=== PATIENT | female | born 1950 | race Caucasian/White ===

== ENCOUNTER 2017-08-28 11:30 | Emergency (ER) | payer MEDICARE ==
[2017-08-28 13:45] LABS: #Basophils 0.1 thou/uL (0.0-0.2); #Eosinphils 0.1 thou/uL (0.0-0.7); #Lymphocytes 2.4 thou/uL (1.20-3.40); #Monocytes 0.7 thou/uL (0.11-0.59); #Neutrophils 6.5 thou/uL (1.40-6.50); %Basophils 0.6 % (0.0-1.0); %Eosinophils 1.2 % (0.0-10.0); %Lymphocytes 24.8 % (21.0-51.0); %Monocytes 7.3 % (0.0-10.0); Hematocrit 40.4 % (36.0-47.0); Mean Platelet Volume 6.4 fL (7.4-10.4); Red Blood Cell (RBC) Count 4.14 mill/uL (4.20-5.40); White Blood Cell (WBC) Count 9.7 thou/uL (4.8-10.8)
[2017-08-28] MEDS ORDERED: ISOVUE-370 76%-LOCM 1 ML ONE (13:48)
[2017-08-28] MEDS ORDERED: Dexamethasone 4 mg/ml Vial ONE (13:51)
[2017-08-28] MEDS ORDERED: Morphine 4 MG/ML VIAL ONE (13:51)
[2017-08-28 14:08] LABS: ALT (SGPT) 22 U/L (8-55); AST (SGOT) 18 U/L (5-34); Alkaline Phosphatase 79 U/L (40-150); Anion Gap 9 mmol/L (10-20); BUN (Urea Nitrogen) 14 mg/dL (9.8-20.1); Bilirubin, Total 0.5 mg/dL (0.2-1.2); Calc. Creatinine Clearance 0 mL/min (70-130); Calcium 9.3 mg/dL (7.8-10.44); Carbon Dioxide 30 mmol/L (23-31); Chloride 104 mmol/L (98-107); Estimated GFR-MDRD 65; Globulin 2.3 g/dL (2.4-3.5); Lipase 4 U/L (8-78); Magnesium 2.2 mg/dL (1.6-2.6)
[2017-08-28 14:10] LABS: Troponin I Less than 0.010 ng/mL (< 0.028)
[2017-08-28 14:19] LABS: Bilirubin Negative (Negative); Blood, Urine Negative (Negative); Glucose, Urine (Dipstick) 100 mg/dL (Negative); Ketone, Urine Negative (Negative); Nitrite Negative (Negative); Protein, Urine (Dipstick) Negative (Neg-Trace); Urobilinogen 0.2 mg/dL (0.2-1.0)
--- NOTE | 2017-08-28 14:20 | RAD ---
AP VIEW CHEST: Date: 08/28/17 HISTORY: Chest pain. FINDINGS: The lungs are well aerated. No evidence of active intrathoracic disease seen. No evidence of effusion s, pneumonia, or pneumothorax seen. IMPRESSION: Unremarkable AP view of chest. POS: [facility]
--- NOTE | 2017-08-28 15:20 | CT ---
CONTRAST ENHANCED CT OF SOFT TISSUES NECK OBTAINED: Date: 08/28/17 HISTORY: Sore throat since last night, worsening, radiating down to mid sternal region. FINDINGS: Contrast enhanced CT of the soft tissue neck is obtained. The frontal, ethmoid, maxillary, and spheno id sinuses are well aerated. No evidence of lymphadenopathy or masses are seen. The retropharyngeal r egion is unremarkable. No evidence of neck abscess is seen. There is an approximately 6.0 mm area of hypodensity in the left thyroid lobe, as well as some hetero geneity in the right thyroid inferiorly. This may represent thyroid lesions, too small to characteriz e on CT. Further workup using elective sonography may be of use. IMPRESSION: No evidence of retropharyngeal abscess. POS: [facility]
== END 2017-08-28 17:47 | disposition home or self-care (01) ==
LOC: ERS 11:30
DX: K20.9 Esophagitis, unspecified (principal); E10.9 Type 1 diabetes mellitus without complications; E78.5 Hyperlipidemia, unspecified; Z79.899 Other long term (current) drug therapy
CPT/HCPCS: 36415; 70491; 71010; 80053; 81003; 82553; 83605; 83690; 83735; 84484; 85025; 87081; 87430; 93005; 96361; 96374; 96375; J1100; J2270

== ENCOUNTER 2017-09-22 08:48 | Outpatient (CLI) | payer MEDICARE ==
--- NOTE | 2017-09-23 12:36 | RAD ---
MODIFIED BARIUM SWALLOW WITH SPEECH THERAPIST: HISTORY: Dysphagia following other/cerebrovascular disease and dysphagia unspecified. COMPARISON: None. FINDINGS/IMPRESSION: A modified barium swallow was performed by the speech therapist. A video was performed. No aspirati on or penetration was seen during the examination. Please see dedicated speech therapy report for sp ecific findings and recommendations. POS: [facility]
== END 2017-09-22 08:49 | disposition home or self-care (01) ==
PROVIDERS: ATTEND Specialist
DX: I69.891 Dysphagia following other cerebrovascular disease (principal); R13.10 Dysphagia, unspecified
CPT/HCPCS: 74230; G8996-GN-CI; G8997-GN-CI; G8998-GN-CI

== ENCOUNTER 2019-02-20 17:56 | Observation (INO) | payer MEDICARE ==
[~2019-02-20 17:56] MED LIST: ISOVUE-370 76%-LOCM 1 ML ONE
[2019-02-20] MEDS ORDERED: Fentanyl 100 MCG/2 ML VIAL ONE (18:25)
--- NOTE | 2019-02-20 19:10 | RAD ---
XR Forearm Rt 2 View STANDARD HISTORY: Fall with forearm injury. COMPARISON: None. FINDINGS: There is a distal radial fracture which is impacted and dorsally angulated it appears to ryan ve an intra-articular component as well as a transverse component through the region of the fused epiphysis. The ulnar styloid is obscured. IMPRESSION: Comminuted impacted and dorsally angulated distal radial fracture.
--- NOTE | 2019-02-20 19:11 | RAD ---
XR Femur Rt 2 View STANDARD HISTORY: Fall with leg injury. COMPARISON: None. FINDINGS: There are minimal arthritic changes of the hip. There are no signs of fracture or dislocati on. IMPRESSION: No evidence of fracture.
--- NOTE | 2019-02-20 19:12 | RAD ---
XR Hand Rt 3 View STANDARD HISTORY: Fall with wrist injury COMPARISON: None. FINDINGS: Old postoperative changes of the PIP joint of the little finger are noted. There is an impacted dorsally angulated distal radial fracture the fracture appears to have both an i ntra-articular as well as transverse component. I do not see a definite ulnar styloid fracture. IMPRESSION: Comminuted impacted and dorsally angulated distal radial fracture.
--- NOTE | 2019-02-20 19:14 | RAD ---
XR Chest 1 View Portable HISTORY: Preop. Patient has history of trauma. COMPARISON: None. FINDINGS: Heart size and mediastinum are within normal limits. The lungs are clear of infiltrates. No rib fractures. Bones appear slightly demineralized. IMPRESSION: No active intrathoracic disease.
--- NOTE | 2019-02-20 19:14 | RAD ---
XR Forearm Lt 2 View STANDARD HISTORY: Fall with forearm injury. COMPARISON: None. FINDINGS: Images are obliqued. This shows a comminuted impacted and dorsally angulated distal radial fracture there also appears to be a possible small avulsion fracture of the ulnar styloid. IMPRESSION: Comminuted impacted and dorsally angulated distal radial fracture.
[2019-02-20 19:19] LABS: #Lymphocytes 1.6 thou/uL (1.20-3.40); #Monocytes 0.7 thou/uL (0.11-0.59); #Neutrophils 9.9 thou/uL (1.40-6.50); %Basophils 0.2 % (0.0-1.0); %Eosinophils 0.2 % (0.0-10.0); %Lymphocytes 13.3 % (21.0-51.0); %Monocytes 5.8 % (0.0-10.0); %Neutrophils 80.5 % (42.0-75.0); Hemoglobin 12.8 g/dL (12.0-16.0); Mean Corpuscular HGB CONC 32.5 g/dL (32.0-36.0); Mean Corpuscular Hemoglobin 31.1 pg (27.0-31.0); Mean Corpuscular Volume 95.6 fL (78.0-98.0); Mean Platelet Volume 6.7 fL (7.4-10.4); Platelet Count 212 thou/uL (130-400); RBC Distribution Width 12.1 % (11.5-14.5); Red Blood Cell (RBC) Count 4.11 mill/uL (4.20-5.40); White Blood Cell (WBC) Count 12.4 thou/uL (4.8-10.8)
[2019-02-20 19:52] LABS: ALT (SGPT) 19 U/L (8-55); AST (SGOT) 17 U/L (5-34); Albumin 3.8 g/dL (3.4-4.8); Alkaline Phosphatase 85 U/L (40-150); Anion Gap 10 mmol/L (10-20); BUN (Urea Nitrogen) 20 mg/dL (9.8-20.1); Bilirubin, Total 0.4 mg/dL (0.2-1.2); Calc. Creatinine Clearance 0 mL/min (70-130); Carbon Dioxide 27 mmol/L (23-31); Chloride 106 mmol/L (98-107); Estimated GFR-MDRD 61; Globulin 2.1 g/dL (2.4-3.5); Glucose 164 mg/dL (80-115); Potassium 4.1 mmol/L (3.5-5.1); Protein, Total 5.9 g/dL (6.0-8.3); Sodium 139 mmol/L (136-145)
--- NOTE | 2019-02-20 20:24 | CT ---
CT Brain WO Con HISTORY: Fall with head injury COMPARISON: None. FINDINGS: The ventricular and cisternal system is within normal limits. There are no signs of intrace rebral hemorrhage or extra-axial fluid collections. The mastoid air cells and visualized sinuses are clear. IMPRESSION: No acute intracranial abnormalities.
--- NOTE | 2019-02-20 20:26 | CT ---
CT Cervical Spine WO Con HISTORY: Neck pain status post fall. COMPARISON: None. FINDINGS: The vertebral bodies maintain normal height. There are marked arthritic changes of the spin e. There is severe disc narrowing at C3-4, C4-5, C5-6 and C6-7. There are marked degenerative facet changes seen. The facets do appear to be in normal alignment. At C3-4 there is some mild to moderate left-sided foraminal narrowing as well as right-sided foramina l narrowing. There is a minimal anterolisthesis of C4 on C5 with asymmetric right-sided facet and uncovertebral ch anges associated moderate right and mild left foraminal narrowing. Bilateral foraminal narrowing more severe on the right at this C5-6 level seen there is no evidence o f any central canal stenosis. There is no CT evidence of fracture. The lung apices are clear. IMPRESSION: No CT evidence of fracture of the cervical spine.
--- NOTE | 2019-02-20 20:49 | CT ---
CT OF CHEST PERFORMED WITH INTRAVENOUS CONTRAST ENHANCEMENT WITH 3D RECONSTRUCTIONS: 02/20/19 HISTORY: Patient is status post fall. Left sided pain. The lungs are clear of infiltrates. There are subsegmental atelectatic changes in the bases. No pleur al effusions. No pneumothorax. There are no rib fractures identified. The thoracic aorta is normal in caliber. No mediastinal hematoma. The visualized liver parenchyma angela ws no focal findings. The visualized portions of the spleen is unremarkable. Right and left adrenal g lands are normal. There are arthritic changes of the spine. No compression fractures. IMPRESSION: No acute findings of the chest. POS: [facility]
[2019-02-20] MEDS ORDERED: Ondansetron PF 4 MG/2 ML Vial ONE (21:36)
[2019-02-20] MEDS ORDERED: Ketamine 50 MG/ML (10ML VIAL) ONE (21:49)
[2019-02-20 22:25] LABS: Troponin I Less than 0.010 ng/mL (< 0.028)
[2019-02-20] MEDS ORDERED: HYDROcodone/Acetaminophen 10/325 mg Tablet PO PRN (23:15)
[2019-02-20] MEDS ORDERED: Ondansetron PF 4 MG/2 ML Vial IVP PRN (23:15)
[2019-02-20] MEDS ORDERED: Dextrose 5% in Water 1,000 ML IV PRN ×2 (23:15→23:59)
[2019-02-20] MEDS ORDERED: Dextrose 50% Abboject 50 ML SYRINGE SLOW IVP PRN ×2 (23:15→23:59)
[2019-02-20] MEDS ORDERED: traMADol HCl 50 MG TAB PO PRN (23:20)
--- NOTE | 2019-02-20 23:24 | RAD ---
XR Forearm Lt 2 View STANDARD HISTORY: Post reduction COMPARISON: Film done earlier today. FINDINGS: There is been reduction of the distal radial fracture which is in good position. A small av ulsive injury of the ulnar styloid is seen. IMPRESSION: Satisfactory reduction of distal radial fracture.
--- NOTE | 2019-02-20 23:25 | RAD ---
XR Forearm Rt 2 View STANDARD HISTORY: Postreduction COMPARISON: Film done earlier today. FINDINGS: The distal radial fracture has been reduced and is in good position. IMPRESSION: Reduction of distal radial fracture.
[2019-02-20] MEDS ORDERED: HumaLOG 300 UNITS/3 ML VIAL SC PRN (23:59)
[2019-02-21] MEDS ORDERED: Ondansetron PF 4 MG/2 ML Vial ONE (01:00)
--- NOTE | 2019-02-21 01:04 | HP ---
This is Cornelius Kelly PA-C dictating a report for Jacinto Fischer MD. TRAUMA ATTENDING: Dr. Jacinto Fischer. HISTORY OF PRESENT ILLNESS: Ms. Damon is a 68-year-old female, past medical history of type 1 diabetes and overactive bladder, presented to the emergency department today with a fall from a 3-foot ladder while painting. She syncopized and fell. She sustained bilateral distal radius fractures, comminuted and displaced. Patient does not remember the event. She has a laceration about the forehead. CT brain, C-spine, chest negative. I have reviewed the films. She does have bilateral atelectasis appreciated. Bilateral forearm x-ray showed comminuted distal radius fractures. These have since been reduced with conscious sedation and closed reduction with splint placement, positive CMS per the emergency department staff. Patient has been hemodynamically stable. She does have an insulin pump that is ongoing. She has not eaten dinner. Orthopedics has not yet evaluated the patient. EKG is non-telling. Troponin initially was negative. Laboratory data other than a glucose of 164, chemistry is untelling. White blood cell count is 12,000, slight leftward shift; hemoglobin is stable at 12. The patient has no dysuria. She was in her normal state of health. She has no chest pain, no shortness of air. She has no abdominal pain, no nausea, no vomiting. No current headache. No neck pain. She has abrasion to her right thigh, but otherwise moves her lower extremities in no pain. Pelvis is stable. She believes that her blood pressure got low as this has happened in the past. We have been asked to admit the patient for syncope workup and pain control. I evaluated the patient in the emergency department along with her and the bedside RN. Still remains sleepy, but is alert and oriented. She is status post conscious sedation, this is wearing off. REVIEW OF SYSTEMS: Pertinent positive and negative as per HPI, otherwise regarded as negative. PAST MEDICAL HISTORY: 1. Type 1 diabetes. 2. Overactive bladder. MEDICATIONS: An insulin pump with a basal insulin rate of around 0.6 units/hour. She does cover for meals. She takes exogenous estrogen and a medication for an overactive bladder. ALLERGIES: ULTRACET. PAST SURGICAL HISTORY: Bilateral ankle ORIF, finger surgery, and a partial hysterectomy. SOCIAL HISTORY: Patient is a lifelong nontobacco, nonsmoker. No illicit drugs. She socially drinks alcohol. She is retired from the [employer] company. They live in [facility]. She is currently . FAMILY HISTORY: Significant for psychiatric disease in her mother who at age 85, colon cancer in her father who at age 89. PHYSICAL EXAMINATION: VITAL SIGNS: Temperature is 98.1 orally, blood pressure 146/71, heart rate of 74, saturating 100% on 2 L of oxygen nasal cannula, and breathing 12 times per minute. GENERAL: This is a 68-year-old female, sitting up in bed, who is drowsy, likely secondary to ketamine administration prior to my visit. She is alert and oriented. Nontoxic appearing. HEENT: Normocephalic. She has trauma and dried blood noted about the head. She has a forehead laceration with primary closures with sutures. Pupils are equal, round, and reactive. Mucous membranes are moist. Trachea is midline. NECK: No JVD is appreciated. RESPIRATORY: Equal rise and fall bilateral breath sounds. Clear to auscultation upper and lower bilaterally. CARDIOVASCULAR: Regular rate and rhythm. No murmur. No edema. She has good sensation and motor function in all extremities. Immediate cap refill in her upper extremities. ABDOMEN: Soft and nontender. No grimace, masses, or rigidity. PELVIS: Stable. MUSCULOSKELETAL: She has splints to bilateral upper extremities. Again, she has good CMS. Pain is actually improved. Full range of motion of the elbows. Full range of motion of the knee. She does have a small abrasion to the right thigh with no tenderness to the long bones. No tenderness to the pelvis. SKIN: [place], warm, and dry. PSYCH: She is withdrawn at this time, likely medication induced. NEUROLOGIC: Alert and oriented to person, place, time, and event and again, mildly sedated, but moves all extremities. No gross deficits. DIAGNOSTIC CRITERIA: Chest x-ray that is negative. Bilateral forearm x-ray showing comminuted distal radius fracture. Brain CT, chest CT, and cervical spine CT all are negative other than atelectasis. She does have some mild anterolisthesis noted on the C-spine scan. Repeat forearm postreduction shows satisfactory reduction bilaterally. EKG is a sinus rhythm without ectopy. Normal axis. No ST elevation. LABORATORY DATA: White blood cell count 12.4, platelets 212, hemoglobin and hematocrit 12.8 and 39.3 respectively. Sodium is 139, potassium 4.1, chloride is 106, CO2 is 27, BUN is 20, creatinine 0.92, and glucose 164. Liver profiles untelling. Troponin initially is less than 0.01. ASSESSMENT AND PLAN: 1. Bilateral distal radius fracture. 2. Forehead laceration, status post primary repair. 3. Syncope and fall. 4. Acute traumatic pain. 5. History of type 1 diabetes, on insulin pump. PLAN: 1. We will admit the patient to Tele-Obs for tonight. 2. Trend cardiac enzymes two more sets. 3. Monitor on telemetry overnight for any ectopy. Monitor vital signs. 4. We will provide sliding scale insulin. I have suspended the insulin pump at the bedside. 5. N.p.o. for tonight, except for medications. 6. Pain control. 7. Trauma bowel regimen. 8. Can repeat chemistry in the morning. 9. Obtain a UA for infectious etiology, however, asymptomatic at this time. 10. Orthopedic consult can be obtained in the morning. Likely can follow up in clinic outpatient. 11. Anticipated if there are no ectopy or changes on telemetry, patient remains hemodynamically stable, and her pain is controlled, she will be able to be discharged in the ensuing days. Diet will be n.p.o., except for medications for tonight. 12. Access of peripheral IV. 13. Full code. 14. Prophylaxis will be SCDs and famotidine. 15. Activity up with assistance. 16. Disposition is Tele-Obs. 17. Discussed case with the emergency department staff coordinated with the bedside RN. I have updated the patient and the patient's at the bedside and answered all of their questions. Job ID: [id number]
[2019-02-21] MEDS: Acetaminophen 325 MG TAB PO SCH ×4 (01:45→18:31)
[2019-02-21] MEDS: traMADol HCl 50 MG TAB PO SCH ×4 (01:45→18:31)
[2019-02-21 02:43] VITALS: BMI 25.3
[2019-02-21 04:24] LABS: Bilirubin Negative (Negative); Blood, Urine Negative (Negative); Clarity CLEAR (Clear); Glucose, Urine (Dipstick) >=1000 mg/dL (Negative); Leukocyte Negative (Negative); Nitrite Negative (Negative); Protein, Urine (Dipstick) Negative (Neg-Trace); Urobilinogen 0.2 mg/dL (0.2-1.0); pH, Urine 5.5 (5.0-9.0)
[2019-02-21 04:30] LABS: Specific Gravity, Urine 1.047 (1.002-1.036)
[2019-02-21 04:49] LABS: Bacteria/HPF None Seen HPF (None Seen); Hyaline Casts/LPF 0-3 HYALINE CAST LPF (0-3 Hyaline); RBC/HPF 0-3 HPF (0-3); Squamous Epithelial 0-3 HPF (0-3); WBC/HPF 0-3 HPF (0-3)
[2019-02-21] MEDS: Ibuprofen 600 MG TAB PO SCH ×2 (05:30→16:23)
[2019-02-21 05:51] LABS: #Lymphocytes 1.2 thou/uL (1.20-3.40); #Monocytes 0.5 thou/uL (0.11-0.59); #Neutrophils 8.6 thou/uL (1.40-6.50); %Basophils 0.4 % (0.0-1.0); %Eosinophils 0.2 % (0.0-10.0); %Lymphocytes 11.2 % (21.0-51.0); %Monocytes 4.5 % (0.0-10.0); %Neutrophils 83.7 % (42.0-75.0); Hemoglobin 11.4 g/dL (12.0-16.0); Mean Corpuscular HGB CONC 32.8 g/dL (32.0-36.0); Mean Corpuscular Hemoglobin 31.3 pg (27.0-31.0); Mean Corpuscular Volume 95.3 fL (78.0-98.0); Mean Platelet Volume 7.2 fL (7.4-10.4); Platelet Count 180 thou/uL (130-400); Red Blood Cell (RBC) Count 3.66 mill/uL (4.20-5.40); White Blood Cell (WBC) Count 10.3 thou/uL (4.8-10.8)
[2019-02-21 06:05] LABS: Anion Gap 11 mmol/L (10-20); BUN (Urea Nitrogen) 17 mg/dL (9.8-20.1); Calc. Creatinine Clearance 64 mL/min (70-130); Calcium 8.4 mg/dL (7.8-10.44); Carbon Dioxide 23 mmol/L (23-31); Chloride 106 mmol/L (98-107); Estimated GFR-MDRD 66; Glucose 230 mg/dL (80-115); Potassium 4.3 mmol/L (3.5-5.1); Sodium 136 mmol/L (136-145)
[2019-02-21] MEDS ORDERED: Famotidine 20 MG TAB PO SCH (09:00)
[2019-02-21] MEDS ORDERED: Scopolamine 1.5 mg/72 hour Patch TD SCH (09:30)
[2019-02-21 11:50] VITALS: TEMP 98.4
[2019-02-21 16:47] VITALS: BP 140/65
--- NOTE | 2019-02-22 08:26 | CON ---
DATE OF CONSULTATION: 02/21/2019 CONSULTING PHYSICIAN: Dr. Drew Belcher. REASON FOR CONSULTATION: Bilateral distal radius forearm fractures. BRIEF CLINICAL HISTORY: Ms. Best is a 68-year-old white female admitted by the Trauma Service after apparently she had some syncope resulting in a fall from a ladder. The patient awakened on the ground with bilateral arm pain and loss of what sounded like consciousness. Closed reduction was performed in the emergency room, patient was placed in sugar-tong splints. Our service was consulted for bilateral distal radius metaphyseal fractures. PAST MEDICAL HISTORY: Significant for diabetes type 2. PAST SURGICAL HISTORY: She has had open reduction and internal fixation of the right ankle and a left ankle. The patient is in bilateral sugar-tong splints, both of which reach out past the metacarpal heads. There is some untoward entrapment of the thumb on both splints and scant splint padding. IMAGING STUDIES: She is neurovascularly intact in both upper extremities with good digital excursion, but she does have some swelling in the dorsum of both hands. After removal of splint, she does have some erythema at the fracture site, but good radial pulse and good digital excursion. Three views of the right forearm demonstrate a Colles fracture of the right distal radius. Adequate apposition is appreciated on the lateral view, does have a little dorsal tilt to may be 7-10 degrees with a post reduction splint intact. Three- views of the left forearm demonstrate a left distal radius metaphyseal fracture consistent with Colles fracture, but on the lateral views, question of intra-articular split noted, but without widening or significant diastasis. She has dorsal comminution, which was appreciated on the lateral view as well and about 7-10 degrees of dorsal tilt, but with adequate apposition noted. IMPRESSION: Bilateral distal radius metaphyseal fractures consistent with Colles fracture with dorsal comminution bilaterally, status post adequate reduction, but poor splinting. PLAN: 1. Both splints were revised due to inadequate padding and application technique. Please see procedure note for right and left distal radius metaphyseal fracture splinting. 2. We will order bilateral slings. 3. The patient will be seen back in clinic in 7 days from discharge. 4. The patient is stable for discharge from orthopedic standpoint. Job ID: [id number]
--- NOTE | 2019-02-22 14:17 | DIS ---
DATE OF ADMISSION: 02/21/2019 DATE OF DISCHARGE: 02/21/2019 This is Natalie Donaldson PA-C dictating a report for Hipolito Luu DO. ADMISSION DIAGNOSES: 1. Syncope. 2. Bilateral distal radius fracture. 3. Forehead laceration. 4. Acute traumatic pain. 5. Diabetes type 1 on insulin pump. DISCHARGE DIAGNOSES: 1. Syncope. 2. Bilateral distal radius fracture. 3. Forehead laceration. 4. Acute traumatic pain. 5. Diabetes type 1 on insulin pump. CONSULTANTS: Orthopedic Surgery, Dr. Laws. HOSPITAL COURSE: Estephania Damon is a 68-year-old female, who presented to [facility] status post syncopal event while on a ladder. She sustained the above injuries. Orthopedic Surgery saw and evaluated the patient and deemed her injuries to be nonoperative at this time. Splints were placed. Pain was controlled with p.o. analgesics. The patient worked with PT and OT. She did have an echocardiogram, which did not reveal any cardiovascular abnormalities to explain her syncopal events. The patient states that she has had a syncopal workup in the past, which has been unrevealing with the exception of intermittent hypotension. The patient states that she did not care for the medication that she was started on and therefore discontinued it. The patient was seen and evaluated with Dr. Luu and deemed stable for discharge on the evening of 02/21/2019. DISCHARGE DISPOSITION: Home. DISCHARGE CONDITION: Good. PHYSICAL EXAMINATION: VITAL SIGNS: Temperature 98.4, pulse 73, respirations 16, O2 saturation 93% to 99% on room air, blood pressure 140/65. GENERAL: Elderly appearing female, in no acute distress. PULMONARY: Normal work of breathing. Symmetric rise. CARDIOVASCULAR: Regular rate and rhythm. GI: Abdomen is soft, nontender, and nondistended. MUSCULOSKELETAL: Bilateral upper extremity dressings are clean, dry, and intact. NEURO: No focal deficit is noted. DISCHARGE INSTRUCTIONS: The patient should be nonweightbearing to the bilateral upper extremities. She should keep her orthopedic dressings clean and dry. She can wash her scalp laceration with soap and water, but not soak it. DISCHARGE MEDICATIONS: The patient may resume her home medications. She was provided a scopolamine patch for vertigo #5, Ultram 50-100 mg q.6 hours p.r.n. for pain #30. She should continue to take [id number] Tylenol and ibuprofen. FOLLOWUP APPOINTMENTS: The patient should follow up with her primary care provider for syncope. Her scalp sutures should be removed in approximately 10 days. The patient is to follow up with Orthopedic Surgery in approximately 10 days. She does not need to follow up Pulmonary Trauma Services, but may call our office with any questions. This is merely a summary of the patient's hospitalization. For more in-depth information, please see her medical record in its entirety. Job ID: [id number]
--- NOTE | 2019-02-24 17:08 | EKG ---
Test Reason : Blood Pressure : / mmHG Vent. Rate : 082 BPM Atrial Rate : 082 BPM P-R Int : 156 ms QRS Dur : 082 ms QT Int : 384 ms P-R-T Axes : 072 047 042 degrees QTc Int : 448 ms Normal sinus rhythm Normal ECG Confirmed by KAMALA LEACH DO ([id number]), desk editor DRE SUMMERS ([id number]) on 02/24/2019 5:08:19 PM Referred By: Confirmed By:KAMALA LEACH DO
== END 2019-02-21 20:03 | disposition home or self-care (01) ==
LOC: ERS 17:56 → 2SW 02-21 00:50
PROVIDERS: ADMIT Surgery; ATTEND Surgery
DX: R55 Syncope and collapse (principal); S52.531A Colles' fracture of right radius, initial encounter for closed fracture; S59.292A Other physeal fracture of lower end of radius, left arm, initial encounter for closed fracture; S52.612A Displaced fracture of left ulna styloid process, initial encounter for closed fracture; S01.81XA Laceration without foreign body of other part of head, initial encounter; G89.11 Acute pain due to trauma; E10.9 Type 1 diabetes mellitus without complications; N32.81 Overactive bladder; M48.02 Spinal stenosis, cervical region; Z79.899 Other long term (current) drug therapy; Z88.5 Allergy status to narcotic agent; Z96.41 Presence of insulin pump (external) (internal); W11.XXXA Fall on and from ladder, initial encounter; Y93.89 Activity, other specified
CPT/HCPCS: 12013; 25605; 70450; 71045; 71260; 72125; 73090 ×2; 73130; 73552; 80048; 80053; 81001; 82962 ×2; 84484 ×3; 85025 ×2; 93005; 93306; 96361; 96374; 96375; 97139; 99156; 99157; 99285; G0378 ×2; 36415; 36416; G0390; J2405; J3010; Q9966

== ENCOUNTER 2019-02-28 10:57 | Day surgery (SDC) | payer MEDICARE ==
[2019-02-27 16:20] VITALS: BMI 25.1
[2019-02-28] MEDS ORDERED: Fentanyl 100 MCG/2 ML VIAL ONE ×4 (15:08→17:30)
[2019-02-28] MEDS ORDERED: Bupivacaine/Epinephrine 0.25% 30 ML VIAL ONE (15:48)
[2019-02-28] MEDS ORDERED: Bacitracin Zinc Ointment 30 gm TUBE ONE (16:17)
[2019-02-28] MEDS ORDERED: Meperidine HCl/PF 25 MG/ML VIAL ONE (16:52)
[2019-02-28] MEDS ORDERED: Morphine 2 MG/ML SYRINGE ONE ×3 (18:42→20:04)
--- NOTE | 2019-02-28 22:30 | RAD ---
Right wrist 2 views intraoperative fluoroscopy HISTORY: Wrist fracture. FINDINGS: Intraoperative fluoroscopy was provided for internal fixation as performed by Dr. Belcher. Spot fluoroscopic images show a volar compression plate and multiple screws to transfix the distal radius. Alignment is anatomic. Fluoroscopy time 4.2 seconds.
--- NOTE | 2019-02-28 22:31 | RAD ---
Left wrist intraoperative fluoroscopy 2 views HISTORY: Wrist fracture. FINDINGS: Intraoperative fluoroscopy was provided for internal fixation as performed by Dr. Belcher. Spot fluoroscopic images show a volar compression plate and multiple screws to transfix the distal radius. Alignment is anatomic. Fluoroscopy time 30.1 seconds.
--- NOTE | 2019-02-28 22:33 | OP ---
DATE OF PROCEDURE: 02/28/2019 PREOPERATIVE DIAGNOSES: 1. Left intra-articular distal radius fracture (greater than 3 fragments). 2. Right distal radius fracture (greater than 3 fragments). POSTOPERATIVE DIAGNOSES: 1. Left intra-articular distal radius fracture (greater than 3 fragments). 2. Right distal radius fracture (greater than 3 fragments). SURGICAL PROCEDURES: 1. Open reduction and internal fixation of left distal radius. 2. Open reduction and internal fixation of right distal radius. ANESTHESIA: General. VALIDATION TECHNICIAN: Ha Orellana PA-C IMPLANTS: Synthes 2.4 mm variable angle LCP 2-column volar distal radial plate with 4 horizontal holes and 3 vertical holes. TOURNIQUET TIME: 43 minutes at 250 mmHg, left wrist and 35 minutes at 250 mmHg, right wrist. COMPLICATIONS: None. DRAINS: None. SPECIMEN: None. OUTCOME: Near-anatomic alignment. INDICATIONS: The patient is a 68-year-old lady status post fall from ladder, landed on bilateral outstretched hands. She was initially seen and evaluated last week, where she was found to have distal radius fractures that had reasonably good reductions, although with dorsal comminution. We decided to do an attempt at closed treatment; however, upon return to the clinic yesterday, she was found to have displacement of both wrists once again. As such, she is now scheduled to be taken to the operating room for open reduction and internal fixation. I have discussed with the patient risks and benefits of the procedure. Risks include, but are not limited to bleeding, infection, nerve injury, wrist arthritis, wrist stiffness, loss of limb or life. The patient appears to understand and does wish to proceed. Consent has been obtained. DESCRIPTION OF PROCEDURE: The patient was brought to the operating room and a time-out performed followed by induction of general anesthesia. Next, she was laid supine on the OR table with the left arm held on an armboard. A sterile prep and drape were then performed of the left upper extremity. The limb was exsanguinated with Esmarch bandage, tourniquet inflated to 250 mmHg. Next, a volar radial skin incision was made exploiting the interval between the flexor carpi radialis and brachioradialis. Dissection was carried down, taking care to spare the radial artery and its neighboring nerve. The pronator quadratus was released off the radial cortex of the distal radius and reflected to the midline revealing the underlying fracture. The fracture hematoma was lavaged from the wound and an elevator was used just to remove soft tissue at the fracture gap. The fracture was then reduced and held in place manually while a 2-column plate was applied to the volar cortex of the radius. An initial 2.7 mm cortical screw was used to hold the plate against the cortex and then with some further adjustment, a total of four 2.4 mm locking screws were placed in the horizontal limb of the plate capturing the distal fragments. This was followed by placement of 2 additional 2.7 mm cortical screws proximally. At the completion of this, there was moravian of radial inclination, volar tilt, and radial length. Final AP and lateral C-arm images were obtained and then the wound closed. Closure was performed with 2-0 Vicryl for fascia and subcu followed by 3-0 nylon for the skin. The skin edges were infiltrated with 0.25% Marcaine with epinephrine and then a volar fiberglass splint was applied to the arm. Tourniquet was then let down. Next, a sterile prep and drape was performed of the right upper extremity. The limb was then exsanguinated with Esmarch bandage, tourniquet inflated to 250 mmHg. A volar radial skin incision was again utilized with pronator quadratus released off the radial border of the radius and reflected to the midline revealing the underlying fracture. The fracture was again freed of soft tissue around the fracture edges and then the fracture reduced and held in place manually while a 2-column plate was applied to the volar surface of the distal radius. This was held in place with 2.7 mm cortical screws proximally and 2.4 mm locking screws distally. This restored normal anatomy with moravian of radial inclination, volar tilt, and length. The wound again irrigated with bulb syringe and then closed in layers with 2-0 Vicryl and 3-0 nylon. Again, skin edges infiltrated with 0.25% Marcaine. A Xeroform gauze, Webril, and fiberglass volar splint was applied to this wrist as well. At the completion of this, attention was placed to the forehead, sutures that were placed last week in the forehead were removed without difficulty. The patient was then transferred to recovery room in stable condition. There were no complications. She tolerated the procedure well. Job ID: [id number]
== END 2019-02-28 20:40 | disposition home or self-care (01) ==
LOC: SDC 10:57
PROVIDERS: ATTEND Orthopaedic Surgery
PROC: 0PSJ04Z Reposition Left Radius with Internal Fixation Device, Open Approach (ICD-10-PCS; principal; 2019-02-28)
PROC: 0PSH04Z Reposition Right Radius with Internal Fixation Device, Open Approach (ICD-10-PCS; 2019-02-28)
DX: S52.572A Other intraarticular fracture of lower end of left radius, initial encounter for closed fracture (principal); S52.571A Other intraarticular fracture of lower end of right radius, initial encounter for closed fracture; E10.9 Type 1 diabetes mellitus without complications; Z98.890 Other specified postprocedural states; Z91.018 Allergy to other foods; Z88.1 Allergy status to other antibiotic agents; W11.XXXA Fall on and from ladder, initial encounter; Z79.899 Other long term (current) drug therapy
CPT/HCPCS: 36416; 76000; C1713; J0690; J2175; J2270; J3010

== ENCOUNTER 2019-05-09 10:33 | Outpatient (CLI) | payer MEDICARE ==
--- NOTE | 2019-05-09 11:14 | BD ---
EXAM: DEXA bone density examination HISTORY: 68-year-old postmenopausal female for screening COMPARISON: None FINDINGS: L1--bone mineral density 0.899 g/sq cm; T score -0.8 L2--bone mineral density 0.982 g/sq cm; T score -0.4 L3--bone mineral density 1.058 g/sq cm; T score -0.2 L4--bone mineral density 1.058 g/sq cm; T score 0.0 Total L1-L4--bone mineral density 1.003 g/sq cm; T score -0.4 Left femoral neck--bone mineral density0.669; T score -1.6 Total proximal left femur--bone mineral density 0.941; T score 0.0 IMPRESSION: Osteopenia This patient has a 10 year WHO fracture risk of a major osteoporotic fracture of 9.9% and of a hip fracture of 1.4%.
== END 2019-05-09 10:34 | disposition home or self-care (01) ==
LOC: BICMAMMO 10:33
PROVIDERS: ATTEND Obstetrics & Gynecology
DX: Z13.820 Encounter for screening for osteoporosis (principal); M85.852 Other specified disorders of bone density and structure, left thigh
CPT/HCPCS: 77080

== ENCOUNTER 2020-03-19 14:45 | Outpatient (CLI) | payer MEDICARE ==
[~2020-03-19 14:45] MED LIST changes: -ISOVUE-370 76%-LOCM 1 ML ONE; +Iopamidol-370 76% 500 ML 1 ML ONE
--- NOTE | 2020-03-19 15:35 | CT ---
CT ABDOMEN AND PELVIS WITH IV AND ORAL CONTRAST: 03/19/20 HISTORY: Left lower quadrant pain, diarrhea, nausea, dizziness. FINDINGS: The lung bases are unremarkable. No calcified gallstones are seen. The liver, spleen, pancreas, adren al glands and kidneys are normal. No calcified gallstones are seen. No free air, free fluid, or lymphadenopathy is noted in the abdomen or pelvis. There is sigmoid diver ticulosis. There is thickening of a small segment of the sigmoid colon in the left lower quadrant wit h minimal pericolonic inflammatory change. No abnormally loculated fluid collection is seen to sugges t abscess formation. There are vascular calcifications without evidence of aneurysmal dilatation of the abdominal aorta. T here are degenerative changes in the spine. IMPRESSION: Sigmoid diverticulitis without evidence of abscess formation. POS: [id number]
== END 2020-03-19 14:46 | disposition home or self-care (01) ==
LOC: BICCT 14:45
PROVIDERS: ATTEND Physician Assistant Medical
DX: K57.32 Diverticulitis of large intestine without perforation or abscess without bleeding (principal)
CPT/HCPCS: 74177; 82565; Q9967

== ENCOUNTER 2021-09-10 21:30 | Emergency (ER) | payer MEDICARE ==
[2021-09-10] MEDS ORDERED: Albuterol 200 PUFF (6.7GM INHALER) ONE (22:40)
== END 2021-09-10 23:13 | disposition home or self-care (01) ==
LOC: ERS 21:30
DX: J18.9 Pneumonia, unspecified organism (principal); E10.9 Type 1 diabetes mellitus without complications; E78.5 Hyperlipidemia, unspecified; E78.00 Pure hypercholesterolemia, unspecified; Z79.899 Other long term (current) drug therapy
CPT/HCPCS: 71045; 93005

== ENCOUNTER 2022-08-27 15:28 | Observation (INO) | payer MEDICARE ==
[2022-08-27] MEDS ORDERED: Ondansetron PF 4 MG/2 ML Vial ONE (15:58)
[2022-08-27 16:07] LABS: #Eosinphils 0.2 thou/uL (0.0-0.7); #Lymphocytes 2.6 thou/uL (1.20-3.40); #Monocytes 0.7 thou/uL (0.11-0.59); %Basophils 0.3 % (0.0-1.0); %Eosinophils 1.6 % (0.0-10.0); %Lymphocytes 27.9 % (21.0-51.0); %Monocytes 7.3 % (0.0-10.0); %Neutrophils 62.9 % (42.0-75.0); Hemoglobin 14.5 g/dL (12.0-16.0); Mean Corpuscular HGB CONC 34.2 g/dL (32.0-36.0); Mean Corpuscular Hemoglobin 32.8 pg (27.0-31.0); Mean Corpuscular Volume 95.9 fl (78.0-98.0); Mean Platelet Volume 6.9 fL (7.4-10.4); Platelet Count 228 10x3/uL (130-400); RBC Distribution Width 12.1 % (11.5-14.5); Red Blood Cell (RBC) Count 4.44 mill/uL (4.20-5.40); White Blood Cell (WBC) Count 9.5 10x3/uL (4.8-10.8)
[2022-08-27 16:22] LABS: ALT (SGPT) 23 U/L (8-55); AST (SGOT) 25 U/L (5-34); Albumin 3.8 g/dL (3.4-4.8); Alkaline Phosphatase 77 U/L (40-110); Anion Gap 12 mmol/L (10-20); BUN (Urea Nitrogen) 14 mg/dL (9.8-20.1); Bilirubin, Total 0.3 mg/dL (0.2-1.2); CRP (Inflammatory) Less than 0.50 mg/dL (= or < 0.5); Calc. Creatinine Clearance 0 mL/min (70-130); Carbon Dioxide 29 mmol/L (23-31); Chloride 103 mmol/L (98-107); Estimated GFR 56; Globulin 2.3 g/dL (2.4-3.5); Glucose 118 mg/dL (83-110); Magnesium 2.2 mg/dL (1.6-2.6); Potassium 4.1 mmol/L (3.5-5.1); Protein, Total 6.1 g/dL (5.8-8.1); Sodium 140 mmol/L (136-145)
[2022-08-27] MEDS ORDERED: Metoclopramide HCl 10 MG/2 ML VIAL ONE (17:56)
[2022-08-27] MEDS ORDERED: Ketorolac Tromethamine 30 MG/ML VIAL ONE (17:56)
[2022-08-27] MEDS ORDERED: Rosuvastatin 20 MG TAB PO SCH (21:00)
[2022-08-28 01:33] VITALS: BMI 25.1
[2022-08-28 05:22] LABS: Hemoglobin A1c 7.6 % (4.0-6.0)
[2022-08-28 05:24] LABS: #Eosinphils 0.2 thou/uL (0.0-0.7); #Lymphocytes 3.2 thou/uL (1.20-3.40); #Monocytes 0.7 thou/uL (0.11-0.59); %Basophils 0.5 % (0.0-1.0); %Lymphocytes 38.6 % (21.0-51.0); %Monocytes 8.9 % (0.0-10.0); Hemoglobin 13.6 g/dL (12.0-16.0); Mean Corpuscular HGB CONC 32.9 g/dL (32.0-36.0); Mean Corpuscular Hemoglobin 31.9 pg (27.0-31.0); Mean Corpuscular Volume 97.1 fl (78.0-98.0); Mean Platelet Volume 6.9 fL (7.4-10.4); Platelet Count 215 10x3/uL (130-400); RBC Distribution Width 12.1 % (11.5-14.5); Red Blood Cell (RBC) Count 4.25 mill/uL (4.20-5.40); White Blood Cell (WBC) Count 8.2 10x3/uL (4.8-10.8)
[2022-08-28 05:44] LABS: Anion Gap 9 mmol/L (10-20); BUN (Urea Nitrogen) 15 mg/dL (9.8-20.1); Calc. Creatinine Clearance 47 mL/min (70-130); Calcium 8.7 mg/dL (7.8-10.44); Carbon Dioxide 30 mmol/L (23-31); Cardiac Risk 2.2 (Less than 4.5); Chloride 107 mmol/L (98-107); Cholesterol 168 mg/dl (< 200 Desired); Estimated GFR 54; Glucose 80 mg/dL (83-110); HDL Cholesterol 75 mg/dL (>60 Neg Risk); LDL Cholesterol, Calculated 81 mg/dL; Potassium 4.6 mmol/L (3.5-5.1); Sodium 141 mmol/L (136-145); Triglycerides 62 mg/dL (Less than 150)
[2022-08-28 08:53] VITALS: TEMP 97.8
[2022-08-28] MEDS ORDERED: Ezetimibe 10 MG TAB PO SCH (09:00)
[2022-08-28] MEDS ORDERED: Aspirin 81 mg Enteric Coated Tablet PO SCH (09:00)
[2022-08-28 11:45] LABS: Syphilis Antibody Nonreactive (Nonreactive); Syphilis Antibody Index 0.03 S/CO (<1.00 Non-Reactive)
[2022-08-28 14:12] VITALS: BP 138/72
[2022-08-31 16:17] LABS: ANA Symphony (Qualitative) Negative (Negative); ANA Symphony (Quantitative) 0.3 Ratio (< 0.7 Negative)
== END 2022-08-28 15:24 | disposition home or self-care (01) ==
LOC: ERS 15:28 → NEURO 17:41
PROVIDERS: ADMIT Hospitalist; ATTEND Hospitalist
DX: G45.9 Transient cerebral ischemic attack, unspecified (principal); E10.9 Type 1 diabetes mellitus without complications; E78.00 Pure hypercholesterolemia, unspecified; I10 Essential (primary) hypertension; Z79.899 Other long term (current) drug therapy; Z88.1 Allergy status to other antibiotic agents; Z96.41 Presence of insulin pump (external) (internal); Z20.822 Contact with and (suspected) exposure to COVID-19
CPT/HCPCS: 70496; 70498; 70551; 80048; 80053; 80061; 82962 ×2; 83036; 83090; 83735; 84484; 85025 ×2; 85652; 86038; 86140; 86225; 86780; 93005; U0003; U0005; 36415; 36416; 96374; 96375; G0378; J1885; J2405; J2765; Q9967

== ENCOUNTER 2022-10-04 13:32 | Outpatient (CLI) | payer MEDICARE | END 2022-10-04 13:33 | disposition home or self-care (01) | LOC: BICMAMMO 13:32 | PROVIDERS: ATTEND Physician Assistant | DX: Z13.820 Encounter for screening for osteoporosis (principal); M85.852 Other specified disorders of bone density and structure, left thigh; M85.851 Other specified disorders of bone density and structure, right thigh | CPT/HCPCS: 77080 ==

== ENCOUNTER 2022-12-26 11:38 | Emergency (ER) | payer MEDICARE | END 2022-12-26 15:31 | disposition home or self-care (01) | LOC: ERS 11:38 | DX: R13.10 Dysphagia, unspecified (principal); E10.9 Type 1 diabetes mellitus without complications; Z79.4 Long term (current) use of insulin; E78.5 Hyperlipidemia, unspecified | CPT/HCPCS: 70360; 70490 ==

== ENCOUNTER 2023-07-29 13:31 | Emergency (ER) | payer MEDICARE, OTHER ==
[~2023-07-29 13:31] MED LIST changes: -Iopamidol-370 76% 500 ML 1 ML ONE; +Iopamidol-370 76% 500 ML MDV (1 ML CHARGE) ONE
[2023-07-29] MEDS ORDERED: Ondansetron PF 4 MG/2 ML Vial ONE (13:50)
[2023-07-29] MEDS ORDERED: Morphine 4 MG/ML VIAL ONE (13:50)
[2023-07-29 14:14] LABS: #Eosinphils 0.1 thou/uL (0.0-0.7); #Monocytes 0.9 thou/uL (0.11-0.59); #Neutrophils 9.1 thou/uL (1.40-6.50); %Basophils 0.2 % (0.0-1.0); %Eosinophils 0.4 % (0.0-10.0); %Lymphocytes 18.3 % (21.0-51.0); %Monocytes 7.5 % (0.0-10.0); %Neutrophils 73.1 % (42.0-75.0); Hematocrit 38.9 % (36.0-47.0); Hemoglobin 12.9 g/dL (12.0-16.0); Mean Corpuscular HGB CONC 33.2 g/dL (32.0-36.0); Mean Corpuscular Hemoglobin 31.3 pg (27.0-31.0); Mean Corpuscular Volume 94.4 fl (78.0-98.0); Mean Platelet Volume 9.6 fL (7.4-10.4); Platelet Count 186 10x3/uL (130-400); RBC Distribution Width 13.3 % (11.5-14.5); Red Blood Cell (RBC) Count 4.12 mill/uL (4.20-5.40); White Blood Cell (WBC) Count 12.5 10x3/uL (4.8-10.8)
[2023-07-29 14:38] LABS: ALT (SGPT) 19 U/L (8-55); AST (SGOT) 17 U/L (5-34); Albumin 3.7 g/dL (3.4-4.8); Alkaline Phosphatase 88 U/L (40-110); Anion Gap 11 mmol/L (10-20); BUN (Urea Nitrogen) 13 mg/dL (9.8-20.1); Bilirubin, Total 1.4 mg/dL (0.2-1.2); Calc. Creatinine Clearance 0 mL/min (70-130); Calcium 9.5 mg/dL (7.8-10.44); Carbon Dioxide 29 mmol/L (23-31); Chloride 99 mmol/L (98-107); Estimated GFR 51; Globulin 2.8 g/dL (2.4-3.5); Glucose 271 mg/dL (83-110); Lipase 4 U/L (8-78); Potassium 3.9 mmol/L (3.5-5.1); Protein, Total 6.5 g/dL (5.8-8.1); Sodium 135 mmol/L (136-145)
== END 2023-07-29 15:20 | disposition home or self-care (01) ==
LOC: ERS 13:31
DX: K57.92 Diverticulitis of intestine, part unspecified, without perforation or abscess without bleeding (principal)
CPT/HCPCS: 36415; 74177; 80053; 83605; 83690; 85025; 96374; 96375; J2270; J2405; Q9967

== ENCOUNTER 2024-05-31 18:37 | Emergency (ER) | payer MEDICARE ==
[2024-05-31 19:04] LABS: #Basophils 0.03 10x3/uL (0.0-0.2); %Basophils 0.4 % (0.0-1.0); %Eosinophils 1.7 % (0.0-10.0); %Lymphocytes 36.2 % (21.0-51.0); %Monocytes 6.9 % (0.0-10.0); %Neutrophils 54.5 % (42.0-75.0); Hematocrit 39.8 % (36.0-47.0); Hemoglobin 13.1 g/dL (12.0-16.0); Mean Corpuscular HGB CONC 32.9 g/dL (32.0-36.0); Mean Corpuscular Hemoglobin 31.2 pg (27.0-31.0); Mean Corpuscular Volume 94.8 fL (78.0-98.0); Mean Platelet Volume 8.9 fL (7.4-10.4); Platelet Count 213 10x3/uL (130-400); RBC Distribution Width 13.2 % (11.5-14.5)
[2024-05-31 19:21] LABS: ALT (SGPT) 14 U/L (8-55); AST (SGOT) 15 U/L (5-34); Albumin 3.5 g/dL (3.4-4.8); Alkaline Phosphatase 99 U/L (40-110); Anion Gap 12 mmol/L (10-20); BUN (Urea Nitrogen) 22 mg/dL (9.8-20.1); Bilirubin, Total 0.3 mg/dL (0.2-1.2); Calc. Creatinine Clearance 0 mL/min (70-130); Calcium 9.7 mg/dL (7.8-10.44); Carbon Dioxide 27 mmol/L (23-31); Chloride 104 mmol/L (98-107); Estimated GFR 46; Globulin 2.7 g/dL (2.4-3.5); Glucose 248 mg/dL (83-110); Lipase 15 U/L (8-78); Potassium 4.5 mmol/L (3.5-5.1); Protein, Total 6.2 g/dL (5.8-8.1); Sodium 138 mmol/L (136-145)
[2024-05-31 20:52] LABS: Bacteria/HPF None Seen HPF (None Seen); Bilirubin Negative (Negative); Blood, Urine Negative (Negative); CAUTI Indications for Culture Dysuria,urgency,freq; Clarity Clear (Clear); Glucose, Urine (Dipstick) >=1000 mg/dL (Negative); Ketone, Urine Negative (Negative); Leukocyte Negative Leu/uL (Negative); Nitrite Negative (Negative); Protein, Urine (Dipstick) Negative (Neg-Trace); RBC/HPF 0-3 HPF (0-3); Squamous Epithelial 0-3 HPF (0-3); Urobilinogen Normal mg/dL (Less than 2); WBC/HPF None Seen HPF (0-3); pH, Urine 5.5 (5.0-9.0)
[2024-05-31 20:58] LABS: Specific Gravity, Urine Greater than 1.060 (1.002-1.036)
[2024-05-31 20:59] LABS: Urine Culture Reflex No No
== END 2024-05-31 21:00 | disposition home or self-care (01) ==
LOC: ERS 18:37
DX: K57.92 Diverticulitis of intestine, part unspecified, without perforation or abscess without bleeding (principal); E10.9 Type 1 diabetes mellitus without complications; I10 Essential (primary) hypertension
CPT/HCPCS: 36415; 74177; 80053; 81001; 83605; 83690; 85025

== ENCOUNTER 2025-08-02 13:17 | Emergency (ER) | payer MEDICARE ==
[2025-08-02 14:29] LABS: #Basophils 0.04 10x3/uL (0.0-0.2); #Eosinophils 0.07 10x3/uL (0.0-0.7); #Monocytes 0.62 10x3/uL (0.11-0.59); #Neutrophils 5.13 10x3/uL (1.40-6.50); %Basophils 0.5 % (0.0-1.0); %Eosinophils 0.8 % (0.0-10.0); %Lymphocytes 29.8 % (21.0-51.0); %Monocytes 7.4 % (0.0-10.0); %Neutrophils 61.1 % (42.0-75.0); Hematocrit 40.9 % (36.0-47.0); Hemoglobin 13.0 g/dL (12.0-16.0); Mean Corpuscular Hemoglobin 29.6 pg (27.0-31.0); Mean Corpuscular Volume 93.2 fL (78.0-98.0); Platelet Count 209 10x3/uL (130-400); Red Blood Cell (RBC) Count 4.39 mill/uL (4.20-5.40); White Blood Cell (WBC) Count 8.39 10x3/uL (4.8-10.8)
[2025-08-02 14:44] LABS: ALT (SGPT) 15 U/L (Less than 34); AST (SGOT) 20 U/L (11-34); Albumin 3.9 g/dL (3.1-4.5); Alkaline Phosphatase 100 U/L (40-110); Anion Gap 12 mmol/L (10-20); BUN (Urea Nitrogen) 15 mg/dL (9.8-20.1); Bilirubin, Total 0.4 mg/dL (0.3-1.2); Calc. Creatinine Clearance 0 mL/min (70-130); Calcium 9.3 mg/dL (7.8-10.44); Carbon Dioxide 28 mmol/L (23-31); Chloride 107 mmol/L (98-107); Globulin 2.4 g/dL (2.4-3.5); Glucose 112 mg/dL (83-110); Lipase 13 U/L (8-78); Potassium 4.0 mmol/L (3.5-5.1); Sodium 143 mmol/L (136-145)
== END 2025-08-02 17:05 | disposition home or self-care (01) ==
LOC: ERS 13:17
DX: R07.89 Other chest pain (principal); I10 Essential (primary) hypertension; E78.5 Hyperlipidemia, unspecified; G35.D Multiple sclerosis, unspecified; K57.90 Diverticulosis of intestine, part unspecified, without perforation or abscess without bleeding; E10.9 Type 1 diabetes mellitus without complications; I95.9 Hypotension, unspecified; Z79.4 Long term (current) use of insulin; Z79.82 Long term (current) use of aspirin; Z79.899 Other long term (current) drug therapy
CPT/HCPCS: 36415; 71045; 80053; 83690; 84484; 85025; 85379; 93005